=== PATIENT | male | born 1960 | race Caucasian/White ===

== ENCOUNTER 2024-03-25 16:48 | Emergency (ER) | payer OTHER, SELFPAY ==
[2024-03-25 17:05] VITALS: BP 125/70; PULSE 75; RESP 16; TEMP 36.5; O2SAT 98; BMI 23.3
--- NOTE | 2024-03-25 20:27 | PC.NURSE ---
Registration reports patient left at 192, took L&I paperwork with him.
== END 2024-03-25 20:28 | disposition left against medical advice (07) ==
PROVIDERS: Emergency Provider Emergency Medicine
CPT/HCPCS: 99281